=== PATIENT | female | born 1990 | race Caucasian/White ===

== ENCOUNTER 2022-11-25 20:00 | Emergency (ER) | payer OTHER ==
[~2022-11-25] VITALS: Ht 162.6 cm; Wt 104.0 kg
[~2022-11-25 20:00] MED LIST: CALCIUM; PRENATAL VIT
[2022-11-25 20:04] VITALS: BP 147/97; PULSE 86; RESP 18; TEMP 98.4; O2SAT 99
[2022-11-25] MEDS ORDERED: KETOROLAC 30MG/ML VIAL IM ONE (23:30)
[2022-11-26] MEDS ORDERED: LOPERAMIDE 2MG/15ML UDC PO ONE (00:45)
[2022-11-26] MEDS ORDERED: ACETAMINOPHEN 325MG TABLET PO ONE (00:45)
[2022-11-26] MEDS ORDERED: LOPE2CAP MT (00:57)
[2022-11-26] MEDS ORDERED: NAPR-1176 MT (02:59)
== END 2022-11-26 03:05 | disposition home or self-care (01) ==
LOC: ER 20:00
DX: F55.2 Abuse of laxatives (principal); K62.89 Other specified diseases of anus and rectum
CPT/HCPCS: 99283; J1885

== ENCOUNTER 2022-11-29 18:16 | Emergency (ER) | payer OTHER ==
[~2022-11-29] VITALS: Ht 170.2 cm; Wt 109.0 kg
[~2022-11-29 18:16] MED LIST changes: +LOPE2CAP MT; +NAPR-1176 MT
[2022-11-29 18:20] VITALS: PULSE 124; RESP 18
[2022-11-29 18:23] VITALS: BP 143/96; TEMP 98.7; O2SAT 98
[2022-11-29] MEDS ORDERED: PENICILLIN G BENZATHINE 2,400,000 UNITS/4ML SYR IM ONE (20:00)
[2022-11-29 20:13] LABS: BASOPHILS % 0.5 % (0.0-2.0); DIFFERENTIAL COMMENT 0; EOSINOPHILS % 1.3 % (0.0-5.0); HEMATOCRIT. 21.8 % (36.0-48.0); LYMPHOCYTES % 16.6 % (20.0-50.0); MEAN CORPUSCULAR HEMOGLOBIN 26.2 pg (28.0-32.0); MEAN CORPUSCULAR HGB CONC 31.9 g/dL (31.0-37.0); MEAN PLATELET VOLUME 8.6 fl (7.4-10.4); MONOCYTES % 4.6 % (2.0-8.0); PLATELET 445 x1000/uL (130-400); RED BLOOD CELL COUNT 2.66 mill/uL (4.2-5.4); RED CELL DISTRIBUTION WIDTH 21.9 % (11.6-14.6); WHITE BLOOD COUNT 14.7 x1000/uL (4.5-11.0)
[2022-11-29 20:18] LABS: CHLORIDE 110 mEq/L (98-107); INDEX HEMOLYSI 1 (1-3); INDEX ICTERIC 1 (1-4); INDEX LIPEMIC 1 (1-3); POTASSIUM 4.8 mEq/L (3.5-5.1); SODIUM 138 mEq/L (136-145)
[2022-11-29 20:25] LABS: ALANINE AMINOTRANSFERASE 13 IU/L (13-61); ALBUMIN 2.1 g/dL (3.4-5.0); ASPARTATE AMINOTRANSFERASE 17 IU/L (15-37); BILIRUBIN TOTAL 0.1 mg/dL (0.1-1.0); CALCIUM 8.2 mg/dL (8.5-10.1); CARBON DIOXIDE 22 mEq/L (21-32); CREATININE 0.7 mg/dL (0.6-1.3); GLUCOSE 94 mg/dL (70-105); PROTEIN TOTAL 6.2 g/dL (6.0-8.3); UREA NITROGEN BLOOD 14 mg/dL (7-21)
== END 2022-11-29 21:10 | disposition home or self-care (01) ==
LOC: ER 18:16
DX: A53.9 Syphilis, unspecified (principal); D64.9 Anemia, unspecified
CPT/HCPCS: 99283; 80053; 85025; 36415; 96372; J0561